=== PATIENT | male | born 1995 | race Caucasian/White ===

== ENCOUNTER 2019-12-09 22:21 | Emergency (ER) | payer BC ==
[2019-12-09 22:39] VITALS: RESP 18
[2019-12-09] MEDS ORDERED: MORPHINE SULFATE 4 MG/ML SYRINGE IM STA (23:08)
--- NOTE | 2019-12-09 23:30 | CT ---
EXAMINATION TYPE: CT brain wo con DATE OF EXAM: 12/09/2019 COMPARISON: None HISTORY: Headache. CT DLP: 1188.4 mGycm Automated exposure control for dose reduction was used. There is ayoub-white matter hypodensity involving the left frontal lobe and to a lesser extent the rig ht frontal lobe. There is no mass effect. The ventricles of normal size. The calvarium is intact. The re is no evidence of intracranial hemorrhage. Sella turcica appears normal. IMPRESSION: Bilateral frontal lobe hypodensity consistent with encephalomalacia. No mass effect. This would be co nsistent with sequela of traumatic brain injury.
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
[2019-12-10 00:21] VITALS: BP 100/64; PULSE 70; TEMP 98.5
== END 2019-12-10 00:15 | disposition home or self-care (01) ==
LOC: EC 22:21
DX: R51 Headache (principal); F17.200 Nicotine dependence, unspecified, uncomplicated; Z87.820 Personal history of traumatic brain injury
CPT/HCPCS: 99284; 96372; 70450; J2270

== ENCOUNTER → 2020-01-31 | Outpatient (CLI) | payer BC ==
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
== END | disposition home or self-care (01) ==
LOC: RADMRIMAIN 12:37
DX: G93.89 Other specified disorders of brain (principal); R20.2 Paresthesia of skin
CPT/HCPCS: 70551; 72141

== ENCOUNTER → 2020-02-10 | Outpatient (CLI) | payer BC, OTHER ==
--- NOTE | 2020-02-10 21:41 | MR ---
EXAMINATION TYPE: MR lumbar spine wo con DATE OF EXAM: 02/10/2020 COMPARISON: None HISTORY: 24-year-old male Paresthesia TECHNIQUE: Multiplanar, multisequence images of the lumbar spine were acquired. FINDINGS: Vertebral body heights are preserved and alignment is maintained. Mild straightening of the normal lumbar lordosis. Mild disc bulging from L3 to S1 levels and mild facet arthropathy lower lumbar spine. No suspicious bone marrow replacement. Conus medullaris is normal. No prevertebral paravertebral soft tissue abnormality. No large focal disc herniation or significant spinal canal stenosis. From T12 to L4 levels, no significant canal or foraminal stenosis. At L3-L4, mild facet arthropathy and mild bulging disc. Minimal inferior right neural foraminal narro wing. At L5-S1, bulging disc with mild left greater than right neuroforaminal stenosis. IMPRESSION: 1. Mild facet arthropathy lower lumbar spine and mild bulging discs in the lower lumbar spine. 2. Changes result in mild left greater than right neuroforaminal narrowing at L5-S1. 3. No large focal disc herniation or significant spinal canal stenosis.
== END | disposition home or self-care (01) ==
LOC: RADMRIMAIN 14:47
PROVIDERS: ATTEND Psychiatry & Neurology Neurology
DX: M48.07 Spinal stenosis, lumbosacral region (principal); M51.26 Other intervertebral disc displacement, lumbar region; M47.816 Spondylosis without myelopathy or radiculopathy, lumbar region
CPT/HCPCS: 72148

== ENCOUNTER 2024-02-14 15:41 | Emergency (ER) | payer OTHER ==
[2024-02-14] MEDS ORDERED: IBUPROFEN 800 MG TAB ONE (16:32)
[2024-02-14] MEDS ORDERED: ACETAMINOPHEN TAB 500 MG TAB ONE (16:32)
--- NOTE | 2024-03-18 14:54 | XR ---
Site ID [facility] Patient Wojciech Burns A ID [id number] Order # Procedure XR chest 2V EXAMINATION TYPE: XR chest 2V DATE OF EXAM: 02/15/2024 8:23 AM CLINICAL INDICATION: Fever body aches COMPARISON: THIS EXAM WAS READ DURING PACS DOWNTIME, NO PRIORS AVAILABLE. TECHNIQUE: XR chest 2V Frontal view of the chest. FINDINGS: Lungs/Pleura: There is no evidence of pleural effusion, focal consolidation, or pneumothorax. Pulmonary vascularity: Unremarkable. Heart/mediastinum: Cardiomediastinal silhouette is unremarkable. Musculoskeletal: No acute osseous pathology. Other findings: None IMPRESSION: No acute cardiopulmonary disease/process.
== END 2024-02-14 20:36 | disposition home or self-care (01) ==
LOC: EC 15:41
DX: U07.1 COVID-19 (principal)
CPT/HCPCS: 71046; 99283